=== PATIENT | female | born 1955 | race Caucasian/White ===

== ENCOUNTER 2024-04-13 00:57 | Day surgery (SDC) | payer MEDICARE, BC, SELFPAY ==
[2024-01-28 12:10] VITALS: BMI 26.6
[2024-03-30 13:16] VITALS: BMI 26.6
[2024-04-13 11:33] VITALS: BP 164/82; PULSE 70; RESP 19; TEMP 36.6; O2SAT 99
[2024-04-13] MEDS: LACTATED RINGERS 1,000 ML 150 ML IV CONT (11:47)
--- NOTE | 2024-04-13 12:14 | WPDANESEPPF ---
Anes - Initial Pre Proc Eval Procedure: Operation Date: 04/13/24 13:00 Proposed Procedures p Colonoscopy - Yvan Shanks MD Date/Time: 04/13/24 12:14 Surgeon: Yvan Shanks MD Pre Op Diagnosis: fecal abnormalitities Patient Data Age: 69 Gender: F Height: 1.6 m Weight: 70.5 kg Last Vital Signs Temp 36.6 C 04/13/24 11:33 Pulse 70 04/13/24 11:33 Resp 19 04/13/24 11:33 BP 164/82 H 04/13/24 11:33 Pulse Ox 99 04/13/24 11:33 O2 Del Method Room Air 04/13/24 11:33 Allergies Allergy/AdvReac Type Severity Reaction Status Date / Time Sulfa (Sulfonamide Allergy rash Verified 04/13/24 11:31 Antibiotics) acetaminophen (From Vicodin) AdvReac Agitated Verified 04/13/24 11:31 hydrocodone (From Vicodin) AdvReac Agitated Verified 04/13/24 11:31 Home Medications ?Medication ?Instructions ?Recorded ?Confirmed ?Type albuterol sulfate 90 mcg/actuation 2 inh inhalation DAILY 01/28/24 04/13/24 History aerosol inhaler atorvastatin 10 mg tablet 10 mg PO DAILY 01/28/24 04/13/24 History clonidine HCl 0.1 mg tablet 0.1 mg PO DAILY 01/28/24 04/13/24 History losartan 100 mg tablet 100 mg PO DAILY 01/28/24 04/13/24 History Patient hx anesthesia problems: none Family hx anesthesia problems: none Results Review: All pre-operative results and documents have been reviewed as part of the pre-operative evaluation. [facility] Past Medical History Medical History HTN (hypertension) Overweight Smoker Social History Social History Smoking packs per day: 1 Smoking cigarettes per day: 20.0 Smoking status: Current every day smoker Tobacco type: cigarettes Alcohol intake: current Drinks per week: 10 Substance use: never Substance use type: does not use Living arrangements: with family Spiritual care concerns: No Anes - Eval Final PreProcedure Day of Procedure 04/13/24 12:14 Patient weight: overweight Heart: regular rate and rhythm Lungs: clear to auscultation Airway: Mallampati scale class II Neurological: alert and oriented Last oral intake: >/= 8 hours ASA classification: III Emergent: no Anesthetic plan: proceed Anesthesia type and monitoring: general GIVS and standard monitoring Results Review: All pre-operative results and documents have been reviewed as part of the pre-operative evaluation. Informed Consent: The patient's anesthetic plan and its attendant risks and benefits were discussed with the patient/family/POA. Questions were solicited and answers provided to the satisfaction of the patient/family/POA.
--- NOTE | 2024-04-13 12:38 | PM.HPGS ---
History of Present Illness History of Present Illness Consent: Risks, benefits, and alternatives have been discussed and questions answered. Patient agrees to proceed with procedure. Chief complaint: fecal abnormalitities Narrative: Sheree Potts is a 69 year old female here for first colonoscopy, had + cologuard Review of Systems Review of Systems: All systems reviewed & are unremarkable except as noted in HPI and below PMFSH Past Medical History Medical History Positive colorectal cancer screening using Cologuard test HTN (hypertension) Overweight Smoker Social History Social History Smoking packs per day: 1 Smoking cigarettes per day: 20.0 Smoking status: Current every day smoker Tobacco type: cigarettes Alcohol intake: current Drinks per week: 10 Substance use: never Substance use type: does not use Living arrangements: with family Spiritual care concerns: No Meds Home Medications and Allergies Home Medications ?Medication ?Instructions ?Recorded ?Confirmed ?Type albuterol sulfate 90 mcg/actuation 2 inh inhalation DAILY 01/28/24 04/13/24 History aerosol inhaler atorvastatin 10 mg tablet 10 mg PO DAILY 01/28/24 04/13/24 History clonidine HCl 0.1 mg tablet 0.1 mg PO DAILY 01/28/24 04/13/24 History losartan 100 mg tablet 100 mg PO DAILY 01/28/24 04/13/24 History Allergies Allergy/AdvReac Type Severity Reaction Status Date / Time Sulfa (Sulfonamide Allergy rash Verified 04/13/24 11:31 Antibiotics) acetaminophen (From Vicodin) AdvReac Agitated Verified 04/13/24 11:31 hydrocodone (From Vicodin) AdvReac Agitated Verified 04/13/24 11:31 Vital Signs Vital Signs - 24 hr 04/13/24 11:33 Temperature 97.8 F Pulse Rate 70 Respiratory Rate 19 Blood Pressure 164/82 H Pulse Oximetry 99 Oxygen Delivery Room Air Exam Const: General: comfortable and no acute distress HENMT: Face/Nose/Sinus: Normal nares present Eyes: General: appearance normal, both eyes and all related structures Neck: Neck: no JVD Resp: Auscultation: clear to auscultation bilaterally Cardio: Rate: regular rate Rhythm: regular rhythm GI: Inspection: non-distended GI Palp: Yes Soft to palpation Skin: General skin exam: normal color Neuro: Speech: normal speech Extrem: General: normal to inspection Psych: Mental Status: mental status grossly normal Assessment and Plan Assessment and plan (1) Positive colorectal cancer screening using Cologuard test: Code(s): R19.5 - Other fecal abnormalities Status: Acute Assessment and Plan: cologuard
[2024-04-13 12:51] VITALS: BP 94/46; PULSE 58; RESP 20; O2SAT 98
[2024-04-13 13:01] VITALS: BP 130/70; PULSE 61; RESP 18; O2SAT 100
[2024-04-13 13:11] VITALS: BP 125/55; PULSE 56; RESP 20; O2SAT 100
== END 2024-04-13 13:19 | disposition home or self-care (01) ==
PROVIDERS: PCP Internal Medicine; Visit Provider Internal Medicine Gastroenterology
PROC: 0DJD8ZZ Inspection of Lower Intestinal Tract, Via Natural or Artificial Opening Endoscopic (ICD-10-PCS; CPT 45378; principal; 2024-04-13 13:00)
DX: K64.8 Other hemorrhoids (principal); K57.30 Diverticulosis of large intestine without perforation or abscess without bleeding; I10 Essential (primary) hypertension; F17.210 Nicotine dependence, cigarettes, uncomplicated; Z79.51 Long term (current) use of inhaled steroids
CPT/HCPCS: 45378; J2704; J7120